=== PATIENT | female | born 1955 | race Caucasian/White ===

== ENCOUNTER 2016-11-11 04:26 | Emergency (ER) | payer BC ==
[~2016-11-11] VITALS: Ht 167.6 cm; Wt 78.5 kg
--- NOTE | ~2016-11-11 | CR63 ---
[facility] A Service of [facility] & [facility] RADIOLOGY TEXT RESULTS PATIENT: GENESIS HENDRIX LOCATION: [facility] : 55 UNIT #: [id number] AGE: [address]: Ml Hernandez SEX: F ORDER DR: [id number] [facility] [address] [place], [place] [address] [id number] MR#: [id number] Acc #: [id number] NAME: GENESIS HENDRIX : 1955 SEX: F STUDY DATE/TIME: 11/11/2016 5:33 UNIT: [facility] ROOM: STUDY DESCRIPTION: CR Chest 2 View Attending Physician: Ml Hernandez Pa-C Ordering Physician: Ml Hernandez Pa-C Primary Care Physician: China Kulkarni M.D. MEDICAL IMAGING REPORT This report is preliminary unless electronic signature is present EXAM PA and lateral chest HISTORY Mid chest pain and shortness of air for 2 weeks. FINDINGS 2 views of the chest demonstrate the cardiac size and pulmonary vascularity are normal. No infiltrates or effusions. Moderate multilevel hypertrophic spurring mid and lower thoracic spine. Laparoscopic gastric band is partly visualized in the upper abdomen. IMPRESSION No acute findings. Dictated by... Pete Ku M.D. THIS IS AN ELECTRONICALLY VERIFIED REPORT Pete Ku M.D. at 11/13/2016 4:42 AM STEPHEN/christopher TD: 11/12/2016 08:34 JOB #: [id number] MEDICAL IMAGING REPORT Page 1 of 1 COPY
--- NOTE | ~2016-11-11 | EKG ---
PATIENT: GENESIS HENDRIX UNIT #: [id number] Ventricular Rate: 78 BPM Atrial Rate: 78 BPM P-R Interval: 148 ms QRS Duration: 80 ms Q-T Interval: 392 ms QTC Calculation(Bezet): 446 ms P [place]ulah: 20 degrees Calculated R Beulah: 21 degrees Calculated T Beulah: 36 degrees Diagnosis Line: Normal sinus rhythm Diagnosis Line: Normal ECG Diagnosis Line: No previous ECGs available Diagnosis Line: Confirmed by KIA MEJÍA MD ([id number]) on Diagnosis Line: 11/13/2016 4:43:53 PM INTERPRETING MD: SIENA
[~2016-11-11 04:26] MED LIST: AMBIEN10 MG PO; BACLOFEN10 MG PO; CIPRO PO; DIOVAN HCT 160-1 TAB PO; HYDROCODON-ACE1 EAC9 PO; MEDROL PO; NABUMETONE PO; NAPROXEN; NAPROXEN PO; NORCO 7.5/325 T1 TAB PO; PERCOCET5/325 PO; PHENERGAN25 MG PO; PROTONIX PO
[2016-11-11] MEDS ORDERED: AMBIEN PO (04:48)
[2016-11-11] MEDS ORDERED: PRILOSEC10 M1 PO (04:48)
[2016-11-11 05:33] LABS: POC - CKMB <1.0 ng/mL (0.0-7.9); POC - TROPONIN <0.05 ng/mL (<=0.05)
[2016-11-11 05:34] LABS: BASOPHIL% 0.6 % (0-2.5); EOSINOPHIL# 0.1 X10e3 (0-0.7); EOSINOPHIL% 0.9 % (0.0-7.0); HEMATOCRIT 37.7 % (35.0-45.0); HEMOGLOBIN 12.2 gm/dL (12.0-16.0); LYMPHOCYTE# 2.5 X10e3 (1.0-3.5); LYMPHOCYTE% 29.2 % (17.0-45.0); MEAN CELL VOLUME 82.1 FL (83-96); MEAN CORPUSCULAR HEMOGLOBIN 26.6 PG (28-34); MEAN CORPUSCULAR HGB CONC 32.4 g/dL (30-36); MEAN PLATELET VOLUME 7.7 FL (6.5-11.5); MONOCYTE# 0.9 X10e3 (0-1.0); MONOCYTE% 10.2 % (3.0-12.0); NEUTROPHIL# 5.1 X10e3 (1.5-7.1); NEUTROPHIL% 59.1 % (40-75); PLATELET COUNT 268 X10e3 (140-420); RED BLOOD COUNT 4.59 X10e (3.90-5.30); RED CELL DISTRIBUTION WIDTH 15.6 % (11.0-15.5); WHITE BLOOD COUNT 8.6 X10e3 (4.0-10.5)
[2016-11-11 05:44] LABS: DIFF IND NO
[2016-11-11 06:00] LABS: ALBUMIN SERUM 3.8 g/dL (3.5-5.0); BILIRUBIN, DIRECT 0.1 mg/dL (0.0-0.2); BILIRUBIN,INDIRECT 0.5 mg/dL (0.0-0.9); BILIRUBIN,TOTAL 0.6 mg/dL (0.2-2.0); BUN/CREATININE RATIO 22.5; CREATININE SERUM 0.8 mg/dL (0.6-1.4); GLOM FILT RATE Estimated 79.6 mL/min (>60); POTASSIUM 3.5 mmol/L (3.5-5.1); PROTEIN TOTAL SERUM 7.1 g/dL (6.0-8.3)
[2016-11-11] MEDS ORDERED: DIFLUCAN PO (06:54)
== END 2016-11-11 07:29 | disposition home or self-care (01) ==
LOC: CED 04:26
PROVIDERS: Physician Assistant Medical
DX: K20.9 Esophagitis, unspecified (principal); K21.9 Gastro-esophageal reflux disease without esophagitis; I10 Essential (primary) hypertension; Z90.710 Acquired absence of both cervix and uterus; Z98.890 Other specified postprocedural states; Z88.0 Allergy status to penicillin; Z79.899 Other long term (current) drug therapy
CPT/HCPCS: 36415; 71020; 80048; 80076; 82553; 84484; 85025; 93005; 96374; 96375; 99285; C9113; J1885